=== PATIENT | male | born 1985 | race Caucasian/White ===

== ENCOUNTER 2024-09-21 09:42 | Observation (INO) | payer OTHER ==
[2024-09-21] MEDS ORDERED: ONDANSETRON 4 MG/2 ML VIAL ONE ×2 (10:07→12:20)
[2024-09-21] MEDS ORDERED: MORPHINE 4 MG/ML SYR ONE (10:08)
[2024-09-21] MEDS ORDERED: NA CHLORIDE 0.9% 1,000 ML ONE (10:08)
[2024-09-21] MEDS ORDERED: FAMOTIDINE 20 MG/2 ML VIAL IV ONE (10:08)
[2024-09-21 10:41] LABS: Absolute Lymphocytes (CBC) 0.3 K/uL (0.7-4.9); Absolute Monocytes 0.4 K/uL (0.1-1.3); Absolute Neutrophil 6.2 K/uL (1.8-8.0); Basophils % 0.2 % (0-1.3); Eosinophils % 0.5 % (0-4.4); Hematocrit 46.3 % (39.6-49.0); Hemoglobin 15.3 g/dL (13.6-17.9); Lymphocytes % 4.8 % (15.3-44.8); MCH 28.7 pg (27.0-35.0); Neutrophils % 88.5 % (41.7-73.7); Platelets 188 thou/uL (152-406); RBC Red Blood Cell Count 5.33 M/uL (4.33-5.43); Red Cell Distribution Width 15.3 % (12.1-15.2)
[2024-09-21 10:46] LABS: Specific Gravity > 1.030 (1.005-1.030); Sqamous Epithelial None Seen /HPF (None Seen); Urine Bacteria None Seen /HPF (<20); Urine Bilirubin NEGATIVE (Negative); Urine Blood 1+ (Negative); Urine Clarity Turbid (Clear); Urine Color Yellow (Yellow); Urine Culture Reflex Order NOT NEEDED; Urine Glucose NEGATIVE (Negative); Urine Ketones NEGATIVE (Negative); Urine Microscopic Reflex YN ORDER UMIC; Urine Mucus 2+ /HPF (None Seen); Urine Nitrite NEGATIVE (Negative); Urine Protein TRACE (Negative); Urine RBC <5 /HPF (None Seen); Urine Urobilinogen Normal (Normal); Urine WBC <5 /HPF (<5); Urine pH 5.5 (5.0-7.0)
[2024-09-21 11:03] LABS: Albumin 3.7 g/dL (3.4-5.0); Anion Gap 5.1 mEq/L (5.0-15.0); Bilirubin Total 1.8 mg/dL (0.2-1.0); Globulin 3.7 g/dL (2.3-3.5); Potassium 4.1 mEq/L (3.5-5.1); Protein, Total 7.4 g/dL (6.4-8.2)
--- NOTE | 2024-09-21 11:34 | RAD REPORT ---
EXAMINATION: CT ABDOMEN AND PELVIS WITH CONTRAST CLINICAL INDICATION: ABD PAIN TECHNIQUE: CT abdomen and pelvis was performed, after the administration of IV contrast, as per [facility] protocol. Axial, sagittal and coronal reconstructions were obtained. One or more of the following dose reduction techniques were used: Automated exposure control, adjustment of the mA and k V according to patient size, and iterative reconstruction. Unless otherwise specified, incidental findings do not require dedicated imaging follow-up. COMPARISON: No prior exam. FINDINGS: LOWER CHEST: The visualized lung bases are clear. LIVER: Normal in size and contour. No focal lesion. Grossly unremarkable gallbladder. SPLEEN: Normal size. No focal lesion. PANCREAS: No mass, ductal dilation, or juliet-pancreatic fluid. ADRENALS: Normal; no mass. KIDNEYS: Normal size and contour. No hydronephrosis. GASTROINTESTINAL TRACT: No evidence of free air, significant intra-abdominal free fluid, bowel obstru ction or abscess. APPENDIX: The distal aspect of the appendix is mildly dilated to 9 mm slight surrounding inflammation suggesting early acute appendicitis. LYMPH NODES: No lymphadenopathy. MUSCULOSKELETAL: No acute or suspicious osseous abnormality. ADDITIONAL FINDINGS: None. IMPRESSION: Mild early acute appendicitis.
--- NOTE | 2024-09-21 11:49 | EDPHYS ---
Physician Documentation [facility] Name: Sage Birch Age: 39 yrs Sex: Male : 1985 Arrival Date: 09/21/2024 Time: 09:42 Bed 16 Private MD: ED Physician Marquis Soto HPI: 09/21 11:37 This 39 yrs old Male presents to ER via Ambulatory with complaints of sent by stoney next level: Fever. 11:37 The patient presents with abdominal pain in the lower abdomen, right lower quadrant. stoney Onset: The symptoms/episode began/occurred 1 day(s) ago. The symptoms do not radiate. Associated signs and symptoms: none. The symptoms are described as crampy, dull. Modifying factors: The symptoms are alleviated by nothing, the symptoms are aggravated by movement, pressure. The patient reports fever, that was measured at 101 degrees Fahrenheit. Severity of pain: At its worst the pain was moderate in the emergency department the pain is unchanged. Onset: The symptoms/episode began/occurred 1 day(s) ago. Modifying factors: there are no obvious modifying factors. Severity of symptoms: At their worst the symptoms were moderate in the emergency department the symptoms are unchanged. The patient has not experienced similar symptoms in the past. Historical: - Allergies: 09:57 No Known Allergies; kc6 - PMHx: 09:57 Gastroesophageal reflux disease; kc6 - PSHx: 09:57 None; kc6 - Immunization history:: Adult Immunizations up to date. - Infectious Disease History:: Denies. - Social history:: Smoking status: Patient denies any tobacco usage or history of. ROS: 11:39 Eyes: Negative for injury, pain, redness, and discharge, ENT: Negative for injury, stoney pain, and discharge, Neck: Negative for injury, pain, and swelling, Cardiovascular: Negative for chest pain, palpitations, and edema, Respiratory: Negative for shortness of breath, cough, wheezing, and pleuritic chest pain, Back: Negative for injury and pain, : Negative for injury, bleeding, discharge, and swelling, MS/Extremity: Negative for injury and deformity, Skin: Negative for injury, rash, and discoloration, Neuro: Negative for headache, weakness, numbness, tingling, and seizure, Psych: Negative for depression, anxiety, suicide ideation, homicidal ideation, and hallucinations, Allergy/Immunology: Negative for hives, rash, and allergies, Endocrine: Negative for neck swelling, polydipsia, polyuria, polyphagia, and marked weight changes, Hematologic/Lymphatic: Negative for swollen nodes, abnormal bleeding, and unusual bruising, 11:39 Constitutional: Positive for fatigue, fever, 11:39 Abdomen/GI: Positive for abdominal pain, abdominal cramps, abdominal distension, of the right lower quadrant, Exam: 11:39 Constitutional: This is a well developed, well nourished patient who is awake, alert, stoney and in no acute distress. Head/Face: Normocephalic, atraumatic. Eyes: Pupils equal round and reactive to light, extra-ocular motions intact. Lids and lashes normal. Conjunctiva and sclera are non-icteric and not injected. Cornea within normal limits. Periorbital areas with no swelling, redness, or edema. ENT: Nares patent. No nasal discharge, no septal abnormalities noted. Tympanic membranes are normal and external auditory canals are clear. Oropharynx with no redness, swelling, or masses, exudates, or evidence of obstruction, uvula midline. Mucous membranes moist. Neck: Trachea midline, no thyromegaly or masses palpated, and no cervical lymphadenopathy. Supple, full range of motion without nuchal rigidity, or vertebral point tenderness. No Meningismus. Chest/axilla: Normal chest wall appearance and motion. Nontender with no deformity. No lesions are appreciated. Cardiovascular: Regular rate and rhythm with a normal S1 and S2. No gallops, murmurs, or rubs. Normal PMI, no JVD. No pulse deficits. Respiratory: Lungs have equal breath sounds bilaterally, clear to auscultation and percussion. No rales, rhonchi or wheezes noted. No increased work of breathing, no retractions or nasal flaring. Back: No spinal tenderness. No costovertebral tenderness. Full range of motion. Male : Normal genitalia with no discharge or lesions. Skin: Warm, dry with normal turgor. Normal color with no rashes, no lesions, and no evidence of cellulitis. MS/ Extremity: Pulses equal, no cyanosis. Neurovascular intact. Full, normal range of motion., bilateral aka Neuro: Awake and alert, GCS 15, oriented to person, place, time, and situation. Cranial nerves II-XII grossly intact. Motor strength 5/5 in all extremities. Sensory grossly intact. Cerebellar exam normal. Normal gait. Psych: Awake, alert, with orientation to person, place and time. Behavior, mood, and affect are within normal limits. 11:39 Abdomen/GI: Inspection: distension, that is mild, Bowel sounds: normal, Palpation: moderate abdominal tenderness, in the right lower quadrant, Liver: no appreciated palpable abnormalities, Hernia: not appreciated, Vital Signs: 09:50 BP 145 / 95; Pulse 90; Resp 18 S; Temp 97.9; Pulse Ox 98% on R/A; Weight 131.54 kg; kc6 Height 6 ft. 3 in. (R); 11:28 BP 131 / 92; Pulse 88; Resp 16 S; Temp 98.9(O); Pulse Ox 100% on R/A; kc6 09:50 Body Mass Index 36.25 (131.54 kg, 190.5 cm) 6 MDM: 09:48 Medical Screening Exam initiated stoney 11:40 Differential diagnosis: URI, UTI, Cholelithiasis, diverticulitis, non-specific abd stoney pain, pancreatitis, Peritonitis, urinary tract infection. Data reviewed: vital signs, nurses notes, lab test result(s), EKG, radiologic studies, CT scan, plain films. Consideration of Admission/Observation Patient was admitted/placed on observation. Escalation of care including admission/observation considered. I considered the following discharge prescriptions or medication management in the emergency department Medications were administered in the Emergency Department. See MAR. Independent interpretation of the following test(s) in the Emergency Department EKG: See my EKG interpretation above. Test considered but Not performed: Ultrasound no abd usg. Historians other than the Patient: pt well informed. Care significantly affected by the following chronic conditions: Obesity, gerd. 09/21 09:59 Order name: CBC with Diff stoney 09/21 09:59 Order name: CMP stoney 09/21 09:59 Order name: Lipase stoney 09/21 09:59 Order name: Urinalysis w/ reflexes stoney 09/21 10:33 Order name: Comprehensive Metabolic Panel EDMS 09/21 10:33 Order name: Lipase EDMS 09/21 10:33 Order name: CBC with Automated Diff EDMS 09/21 10:33 Order name: Urinalysis w/ reflexes EDMS 09/21 10:45 Order name: CBC with Automated Diff EDCO 09/21 10:46 Order name: Urinalysis w/ reflexes; Complete Time: 10:53 [facility] 09/21 10:51 Order name: CBC Smear Scan EDCO 09/21 11:03 Order name: Comprehensive Metabolic Panel; Complete Time: 11:32 EDCO 09/21 11:03 Order name: Lipase; Complete Time: 11:32 EDCO 09/21 10:53 Order name: Abdomen EDCO 09/21 10:56 Order name: Chest Single View EDCO 09/21 11:34 Order name: CT; Complete Time: 11:35 EDCO 09/21 12:18 Order name: RAD EDCO 09/21 09:59 Order name: IV Saline Lock; Complete Time: 10:22 [facility] 09/21 09:59 Order name: Labs collected and sent; Complete Time: 10:22 [facility] 09/21 09:59 Order name: NPO; Complete Time: 10:03 stoney Administered Medications: 10:22 Drug: NS 0.9% IV 1000 ml IV at 1 bolus Per protocol; to be given as a bolus over 60 kc6 minutes Route: IV; Rate: 1 bolus; Site: left antecubital; 10:23 Drug: Famotidine IVP 20 mg IVP once; dilute with 10 mL 0.9% NaCl; give over 2 minutes kc6 Route: IVP; Site: left antecubital; 10:23 Drug: Ondansetron IVP 4 mg IVP once; over 2 minutes Route: IVP; Site: left antecubital; kc6 10:23 Drug: morphine IVP or IV 4 mg IVP once over 4 mins Route: IVP; Infused Over: 4 mins; kc6 Site: left antecubital; 12:13 Drug: Piperacillin-Tazobactam IVPB 3.375 grams IVPB once over 60 mins; (mix in NS 100 kc6 mL) Route: IVPB; Infused Over: 60 mins; Site: left antecubital; Disposition Summary: 09/21/24 11:48 Hospitalization Ordered Notes: Hospitalization Status: Observation stoney Provider: Brandon Jiang cha Location: Telemetry/MedSurg (observation) stoney Condition: Stable stoney Problem: new stoney Symptoms: are unchanged stoney Bed/Room Type: Standard stoney Room Assignment: stoney Diagnosis - Abdominal tenderness stoney - Acute appendicitis with localized peritonitis stoney - Fever, unspecified stoney Discharge Instructions: - Discharge Summary Sheet [facility] Forms: - Medication Reconciliation Form stoney - SBAR form stoney - Leadership Thank You Letter [facility] Prescriptions: - acetaminophen-codeine 300-30 mg Oral tablet - take 2 tablet ORAL route every 6 hours as needed for pain; 15 tablet; Refills: stoney 0, Product Selection Permitted - simethicone 250 mg Oral capsule - take 1 capsule ORAL route 3 times per day as needed for abdominal distention; stoney 30 capsule; Refills: 0, Product Selection Permitted - Augmentin 875-125 mg Oral Tablet - take 1 tablet ORAL route every 12 hours for 10 days; 20 tablet; Refills: 0, stoney Product Selection Permitted Signatures: Dispatcher [employer] Marquis Hi MD MD cha Campbell, Kaitlyn RN RN kc6 Corrections: (The following items were deleted from the chart) 09:59 09:59 Chest Single View+RAD.RAD.BRZ ordered. EDMS JOSUE
--- NOTE | 2024-09-21 11:49 | ER ---
Nurse's Notes [facility] Name: Sage Birch Age: 39 yrs Sex: Male : 1985 Arrival Date: 09/21/2024 Time: 09:42 Bed 16 Private MD: Diagnosis: Abdominal tenderness;Acute appendicitis with localized peritonitis;Fever, unspecified Presentation: 09/21 09:50 Chief complaint: Patient states: he was referred here by [facility] for 6 temp of 102.9, tested (-) for Flu and Covid. pt reports taking Tylenol and Ibuprofen at 0230. Coronavirus screen: At this time, the client does not indicate any symptoms associated with coronavirus-19. Ebola Screen: No symptoms or risks identified at this time. Initial Sepsis Screen: Does the patient meet any 2 criteria? No. Patient's initial sepsis screen is negative. Does the patient have a suspected source of infection? No. Patient's initial sepsis screen is negative. Risk Assessment: Do you want to hurt yourself or someone else? Patient reports no desire to harm self or others. Onset of symptoms was September 21, 2024. 09:50 Method Of Arrival: Ambulatory [facility] 09:50 Acuity: JASON 3 kc6 Historical: - Allergies: 09:57 No Known Allergies; kc6 - PMHx: 09:57 Gastroesophageal reflux disease; kc6 - PSHx: 09:57 None; kc6 - Immunization history:: Adult Immunizations up to date. - Infectious Disease History:: Denies. - Social history:: Smoking status: Patient denies any tobacco usage or history of. Screenin:58 [facility] ED Fall Risk Assessment (Adult) History of falling in the last 3 months, kc6 including since admission No falls in past 3 months (0 pts) Confusion or Disorientation No (0 pts) Intoxicated or Sedated No (0 pts) Impaired Gait No (0 pts) Mobility Assist Device Used No (0 pt) Altered Elimination No (0 pt) Score/Fall Risk Level 0 - 2 = Low Risk Oriented to surroundings, Maintained a safe environment, Educated pt \T\ family on fall prevention, incl call for assistance when getting out of bed. Abuse screen: Denies threats or abuse. Denies injuries from another. Nutritional screening: No deficits noted. Tuberculosis screening: No symptoms or risk factors identified. Assessment: 10:23 General: Appears in no apparent distress. comfortable, well groomed, well developed, kc6 Behavior is calm, cooperative, appropriate for age, Reports fever for 1-2 days, feeling ill for 1-2 days. Pain: Complains of pain in epigastric area, right upper quadrant and right lower quadrant Pain currently is 3 out of 10 on a pain scale. Pain began 2-3 days ago. Neuro: Level of Consciousness is awake, alert, obeys commands, Oriented to person, place, time, situation, Appropriate for age. Cardiovascular: Capillary refill < 3 seconds. Respiratory: Airway is patent Trachea midline Respiratory effort is even, unlabored, Respiratory pattern is regular, symmetrical. GI: Abdomen is flat, non-distended, Abd is soft X 4 quads Abdomen is tender to palpation in epigastric area, right upper quadrant and right lower quadrant Reports upper abdominal pain, diarrhea, Patient currently denies nausea, vomiting. : No signs and/or symptoms were reported regarding the genitourinary system. Urine is blood tinged. EENT: No signs and/or symptoms were reported regarding the EENT system. Derm: No signs and/or symptoms reported regarding the dermatologic system. Skin is intact, is healthy with good turgor, Skin is pink, warm \T\ dry. Musculoskeletal: No signs and/or symptoms reported regarding the musculoskeletal system. Circulation, motion, and sensation intact. Range of motion: intact in all extremities. 11:28 Reassessment: Patient appears in no apparent distress at this time. No changes from kc6 previously documented assessment. Patient and/or family updated on plan of care and expected duration. Pain level reassessed. Patient is alert, oriented x 3, equal unlabored respirations, skin warm/dry/pink. Vital Signs: 09:50 BP 145 / 95; Pulse 90; Resp 18 S; Temp 97.9; Pulse Ox 98% on R/A; Weight 131.54 kg; kc6 Height 6 ft. 3 in. (R); 11:28 BP 131 / 92; Pulse 88; Resp 16 S; Temp 98.9(O); Pulse Ox 100% on R/A; kc6 09:50 Body Mass Index 36.25 (131.54 kg, 190.5 cm) [facility] ED Course: 09:47 Patient arrived in ED. ra3 09:47 Marina Barajas RN is Primary Nurse. kc6 09:48 Marquis Soto MD is Attending Physician. stoney 09:57 Triage completed. kc6 09:57 Arm band placed on. kc6 09:58 Patient has correct armband on for positive identification. Bed in low position. Call kc6 light in reach. Side rails up X 1. Pulse ox on. NIBP on. Door closed. Noise minimized. Lights dimmed. Pillow given. 09:58 Patient maintains SpO2 saturation greater than 95% on room air. kc6 10:23 Inserted saline lock: 20 gauge in left antecubital area, using aseptic technique. Blood kc6 collected. Flushed with 10 mL NS. 11:10 Abdomen In Process Unspecified. EDMS 11:43 Brandon Jiang is Hospitalizing Provider. stoney 11:44 Chest Single View In Process Unspecified. EDMS 16:10 Primary Nurse role handed off by Marina Barajas RN [facility] Administered Medications: 10:22 Drug: NS 0.9% IV 1000 ml IV at 1 bolus Per protocol; to be given as a bolus over 60 kc6 minutes Route: IV; Rate: 1 bolus; Site: left antecubital; 10:23 Drug: Famotidine IVP 20 mg IVP once; dilute with 10 mL 0.9% NaCl; give over 2 minutes kc6 Route: IVP; Site: left antecubital; 10:23 Drug: Ondansetron IVP 4 mg IVP once; over 2 minutes Route: IVP; Site: left antecubital; kc6 10:23 Drug: morphine IVP or IV 4 mg IVP once over 4 mins Route: IVP; Infused Over: 4 mins; kc6 Site: left antecubital; 12:13 Drug: Piperacillin-Tazobactam IVPB 3.375 grams IVPB once over 60 mins; (mix in NS 100 kc6 mL) Route: IVPB; Infused Over: 60 mins; Site: left antecubital; Outcome: 11:48 Decision to Hospitalize by Provider. stoney 12:28 Patient left the ED. kc6 16:31 Patient left the ED. bd Signatures: Dispatcher [employer] EDMS Nupur Corral Corey, MD MD cha Campbell, Kaitlyn, RN RN 6 Ivory, Janett ra3
[2024-09-21] MEDS ORDERED: NA CHLORIDE 0.9% 100 ML ONE (11:56)
[2024-09-21] MEDS ORDERED: PIPERACIL/TAZO 3.375 GM VIAL IV ONE (11:57)
--- NOTE | 2024-09-21 12:18 | RAD REPORT ---
EXAMINATION: ONE VIEW CHEST XR CLINICAL INDICATION: COUGH TECHNIQUE: Frontal chest projection is submitted. Examination is limited by patient positioning and t echnique. COMPARISON: No prior exam. FINDINGS: The lungs are well inflated and clear. The heart is normal in size. No displaced fractures identified . IMPRESSION: No acute intrathoracic abnormalities.
[2024-09-21] MEDS ORDERED: propofoL 200 MG/20 ML VIAL IV ONE (12:20)
[2024-09-21] MEDS ORDERED: FENTANYL CITR 100 MCG/2 ML ONE ×2 (12:20→13:17)
[2024-09-21] MEDS ORDERED: ROCURONIUM 50 MG/5 ML VIAL IV ONE (12:20)
[2024-09-21] MEDS ORDERED: MIDAZOLAM HCL 2 MG/2 ML INJ ONE (12:20)
[2024-09-21] MEDS ORDERED: LIDOCAINE 2% MPF 5 ML VIAL ONE (12:24)
[2024-09-21] MEDS: SUGAMMADEX SODIUM 200 MG/2 ML VIAL IV ONE (12:39)
[2024-09-21] MEDS: NA CIT/CITRIC AC 30 ML ORAL UDC ONE (12:41)
[2024-09-21] MEDS: SUCCINYLCHOLINE 20 MG/ML (10 ML) IV ONE (12:49)
[2024-09-21 12:57] LABS: Blood Morphology Comment NOT SEEN (NOT SEEN); Platelet Estimate ADEQ; White Blood Cell Scan OK (OK)
[2024-09-21] MEDS: NA CIT/CITRIC AC 30 ML ORAL UDC PO ONE (12:59)
[2024-09-21] MEDS: Ringers Lactate 1,000 ML IV ONE (13:02)
[2024-09-21] MEDS ORDERED: MORPHINE 2 MG/ML SYR IV PRN (13:03)
[2024-09-21] MEDS ORDERED: KETOROLAC 30 MG/ML INJ ONE (13:31)
--- NOTE | 2024-09-21 13:32 | P.BOP ---
Preoperative diagnosis: acute appendicitis, acute abd pain Postoperative diagnosis: same Primary procedure: Laparoscopic appendectomy Estimated blood loss: <10cc Specimen: perry Findings: as above Anesthesia: General Complications: None Transferred to: Recovery Room Condition: Good
--- NOTE | 2024-09-21 13:32 | P.SSS ---
Patient History Date of Service: 09/21/24 Reason for admission: Acute appendicitis History of Present Illness: Mr. Birch is a 39-year-old gentleman with past medical history of GERD, obesity, sleep apnea, mitral valve prolapse, depression, and 2 recent bouts of enteritis. He began having abdominal pain and anorexia about 6 days ago. The pain did not appear to be worsening but he began running fever to 103 and so presented to the emergency room today. Upon evaluation in the ED it was found that he had acute appendicitis and Dr. Orantes was consulted. Mr. Birch was taken to the operating room and laparoscopic appendectomy was performed. At bedside post procedure, he is alert, awake, and denies nausea/vomiting. He would like to go home this evening and we will await a full liquid diet to see how he tolerates that. We will then likely discharge him this evening. Home medications list reviewed: Yes - Past Medical/Surgical History Has patient received pneumonia vaccine in the past: No -: GERD -: Obesity -: Depression -: Sleep apnea -: Episodic hypertension -: Appendicitis -: Mitral valve prolapse -: Laparoscopic appendectomy September 21, 2024 Psychosocial/ Personal History: Lives at home with his - Social History Smoking Status: Never smoker Alcohol use: No CD- Drugs: No Caffeine use: Yes Place of Residence: Home <Nava Bhakta Elias - Last Filed: 09/21/24 15:30> Date of Service: 09/23/24 <amanharpreet - Last Filed: 09/23/24 19:19> Allergies No Known Allergies Allergy (Unverified 12/11/12 01:30) Review of Systems 10-point ROS is otherwise unremarkable General: As per HPI Eyes: Unremarkable ENT: Unremarkable Respiratory: Unremarkable Cardiovascular: Unremarkable Gastrointestinal: Abdominal Pain, Other Genitourinary: Unremarkable Musculoskeletal: Unremarkable Integumentary: Unremarkable Neurological: Unremarkable Lymphatics: Unremarkable <Nava Bhakta Elias - Last Filed: 09/21/24 15:30> Physical Examination - Vital Signs Temperature: 98.9 F Blood Pressure: 131/92 Pulse: 88 Respirations: 16 - Physical Exam General: Alert, In no apparent distress, Oriented x3 HEENT: Atraumatic, Normocephalic Neck: Supple Respiratory: Clear to auscultation bilaterally, Normal air movement Cardiovascular: Normal pulses, Regular rate/rhythm, Normal S1 S2 Capillary refill: <2 Seconds Gastrointestinal: Hypoactive, Other (Trocar site bandages clean, dry, and intact) Musculoskeletal: No clubbing, No swelling Integumentary: No rashes Neurological: Normal speech, Normal tone, Normal affect Lymphatics: No axilla or inguinal lymphadenopathy External genitalia: Deferred Rectal: Deferred - Studies Laboratory Data (last 24 hrs) 09/21/24 09/21/24 10:19 10:19 WBC 7.00 Hgb 15.3 Hct 46.3 Plt Count 188 Sodium 137 Potassium 4.1 BUN 15 Creatinine 1.36 H Glucose 98 Total Bilirubin 1.8 H AST 22 ALT 46 Alkaline Phosphatase 60 Lipase 34 <Nava Bhakta - Last Filed: 09/21/24 15:30> Treatment Summary: Acute appendicitislaparoscopic appendectomy per Dr. Orantes - Disposition Discharge Date: 09/21/24 Consultations: Dr. Orantes Patient Discharge Instructions: Will discharge with Augmentin 875 mg p.o. every 12 hours x 7 days #14. Tylenol #3 1-2 p.o. every 6-8 hours as needed pain #15. Simethicone 240 mg p.o. 3 times daily as needed gas/abdominal pain #1 box Diet: Regular Activity: No lifting more than 10 lbs Critical Care: No <Nava Bhakta - Last Filed: 09/21/24 15:30> - Diagnosis (Problem(s)) (1) Acute appendicitis Status: Acute <harpreet newton - Last Filed: 09/23/24 19:19> - Disposition Disposition: ROUTINE DISCHARGE Condition: GOOD
[2024-09-21] MEDS ORDERED: dexAMETHasone 10 MG/ML VIAL ONE (13:33)
--- NOTE | 2024-09-21 14:10 | OP ---
Date of Procedure: 09/21/2024 Surgeon: Kurtis Orantes MD Preoperative Diagnosis: Acute appendicitis. Postoperative Diagnosis: Acute appendicitis. Procedure: Laparoscopic appendectomy. Anesthesia: General plus local. Complications: None. Estimated Blood Loss: Less than 10 cc. Findings: Acute appendicitis. Indication: This is a case of a 39-year-old patient, who came to us with acute appendicitis, acute a bdominal pain. Fully explained the benefits, alternatives, and risks of laparoscopic, possible open appendectomy, which include, but not limited to, infection, bleeding, damage to adjacent structures, anesthesia complication, choledocholithiasis, bile leak, pancreatitis, NE, and even . He also u nderstands this may not relieve any symptoms. He might need more than one surgical intervention. He understood, signed a consent. Description Of The Operation: Patient was brought to the operating room, placed in supine position. Anesthesia was induced without complication. Abdominal area was prepped and draped in the usual vinod rile fashion. Marcaine 0.5% was injected for local anesthetic followed by sharp incision of the skin in the infraumbilical region. Incision was carried down to fascia, which was opened under direct vi rui. Peritoneum was encountered, opened under direct vision. Vicryl #1 placed inside the fascia. Emily trocar was carefully introduced. Pneumoperitoneum was obtained. I put 2 more trocars, 5 mm e ach one of them in the suprapubic and left lower quadrant under direct visualization. This allowed m e to visualize a long, inflamed appendix. Long mesoappendix with adhesions, a little bit retrocecal, so with the help of LigaSure, we were able to open the white lines of Toldt, mobilized the cecum luisa ugh to see the base of the appendix and then the adhesions were removed. The mesoappendix was carefu lly dissected free with the help of LigaSure and then the appendix removed at the base after creating a window with the Endo-AKUA 45 mm nonvascular. Sponge counts and instrument counts are correct. The area shows no bleeding. Appendix removed from abdominal cavity using EndoCatch through the umbilica l incision. Area was inspected once again. No bowel leak. No bleeding. Irrigation was done. We c hecked once again for hemostasis. No bleeding. At that moment, I proceeded to remove the trocars un phuc direct vision. Deflated the pneumoperitoneum. Closed the fascia with #1 Vicryl. Irrigated subc utaneous tissue, closed that with 3-0 chromic and skin with alpa. Sponge counts and instrument co unts were correct. Patient tolerated the procedure well. Patient on his way to Recovery in stable c ondition. GINA/MODL Voice ID: [id number] Report ID: [id number]
[2024-09-21] MEDS: NA CHLORIDE 0.9% 1,000 ML IV SCH (14:50)
--- NOTE | 2024-09-21 17:50 | CON ---
Date of Consultation: 09/21/2024 Diagnosis: Acute appendicitis. History Of Present Illness: This is a case of a 39-year-old patient since 1 day ago developed abdomi nal pain right lower quadrant incision with nausea, vomiting, and fever. The fever get up to 101. H e says that few months ago he has a similar episode. They told him the appendix may be inflamed, but no surgery was done. At this time, the pain got worse. He comes to the ER, diagnosed with acute ap pendicitis. Review of Systems: He denies any dysuria, hematuria, hematochezia, melena. Denies any recent traveling out of the [facility] [place]. Denies any family member sick at home. Denies any shortness of breath. The patient has a fever , abdominal pain. Allergies: NONE. Past Medical History: Include GE reflux and he thinks he has mild mitral valve prolapse. Past Surgical History: None. Social History: He does not smoke. He does not drink alcohol. Family History: Noncontributory. Physical Examination: Vital Signs: Stable. General: Patient is awake, alert. HEENT: Pupils are equal and reactive. Anicteric. Neck: Supple. Chest: Clear. Abdomen: Soft and depressible. Rovsing and psoas signs positive. Rectal: Deferred. Genitalia: Fair. Breasts: Deferred. Extremities: Good capillary refill. Neurologic: Cranial nerves 2 through 12 grossly within normal limits. Laboratory Data: Blood work shows WBC count of 7, hemoglobin of 15.3, and platelets of 188. Potassi um is 4.1, creatinine is 1.36, alkaline phos is 60, lipase 34. CAT scan of the abdomen and pelvis in terpreted by Dr. Duong as distal aspect of appendix is dilated with surrounding inflammation suggestin g appendicitis. No lymphadenopathy seen. No bowel obstruction or abscess seen. Assessment: This is a 39-year-old patient with acute appendicitis. The benefits, alternatives, and risks of laparoscopic possible open appendectomy fully explained which include, but not limited to in fection, bleeding, damage to adjacent structures, anesthesia complication, TN and . He also und erstands this may not relieve symptoms. He might need more than one surgical intervention. He under stand also that he should have follow up with the primary doctor and also follow up with his gastroen terologist to see if there is any more endoscopy if needed due to the history of chronic abdominal pa in. The case was booked in OR emergently. GINA/BARBARA Voice ID: [id number] Report ID: [id number]
[2024-09-21] MEDS: PIPER TAZO 3.375 GM in NA CHLORIDE 0.9% 100 ML IV SCH (19:43)
[2024-09-21] MEDS: HYDROCODONE/APAP 5/325 MG TAB PO PRN (19:43)
[2024-09-24 01:19] VITALS: BP 124/71; TEMP 98; O2SAT 97; BMI 36.2
== END 2024-09-21 20:30 | disposition home or self-care (01) ==
LOC: ER 09:42 → ERHOLD 13:26 → 4TH 14:15
PROVIDERS: ADMIT Internal Medicine; ATTEND Internal Medicine
PROC: 0DTJ4ZZ Resection of Appendix, Percutaneous Endoscopic Approach (ICD-10-PCS; principal; 2024-09-21 12:00)
DX: K35.80 Unspecified acute appendicitis (principal); K21.9 Gastro-esophageal reflux disease without esophagitis; E66.9 Obesity, unspecified; G47.33 Obstructive sleep apnea (adult) (pediatric); F32.A Depression, unspecified; I10 Essential (primary) hypertension
CPT/HCPCS: 85025; 81001; 36415; 88304; 83690; 80053; 74177; 71045; 94010 ×2; 44970; Q9967; J2704; J2543 ×2; J2003; J2250; J3010 ×2; J1100; J2405 ×2; J7120; J7030 ×2; G0378 ×2; A4314; 96374; 96375; 99284